=== PATIENT | female | born 1995 | race Caucasian/White ===

== ENCOUNTER 2017-09-06 13:02 | Emergency (ER) | payer BC ==
[2017-09-06] MEDS ORDERED: CLINDAMYCIN 300 MG/D5W RTU 300 MG/50 ML RTUPB IV ONE (13:48)
[2017-09-06] MEDS ORDERED: MORPHINE SULFATE 10 MG/ML INJ IV ONE (14:02)
[2017-09-06] MEDS ORDERED: NORMAL SALINE 1000 ML 1,000 ML IV ONE (14:02)
--- NOTE | 2017-09-06 14:19 | ER Document Report ---
ED General - General Chief Complaint: Foot Pain Stated Complaint: LEG/FOOT CRAMP Time Seen by Provider: 09/06/17 13:42 Mode of Arrival: Ambulatory Information source: Patient Notes: 22-year-old diabetic female with complaints of swelling pain redness of left foot. Patient notes symptoms started this morning. She notes she had nausea yesterday and did not feel good. Patient denies any DVT or PE risk factors TRAVEL OUTSIDE OF THE [place] IN LAST 30 DAYS: No - HPI Onset: This morning Onset/Duration: Sudden Quality of pain: Burning Severity: Mild Pain Level: 1 Associated symptoms: Leg swelling Exacerbated by: Movement Relieved by: Denies Similar symptoms previously: No - Patient has had cracked skin on her left foot for months Recently seen / treated by doctor: No - Related Data Allergies/Adverse Reactions: No Known Allergies Allergy (Verified 09/23/13 13:18) Home Medications: Current Home Medications Metformin HCl 500 mg PO BID 09/06/17 [History] Past Medical History - Social History Smoking Status: Never Smoker Cigarette use (# per day): No Chew tobacco use (# tins/day): No Smoking Education Provided: No Frequency of alcohol use: None Drug Abuse: None Family History: Reviewed & Not Pertinent Endocrine Medical History: Reports: Hx Diabetes Mellitus Type 2 Renal/ Medical History: Denies: Hx Peritoneal Dialysis Surgical Hx: Negative - Immunizations Hx Diphtheria, Pertussis, Tetanus Vaccination: Yes Review of Systems - Review of Systems Notes: REVIEW OF SYSTEMS: CONSTITUTIONAL : Denies fever, chills, or sweats. Denies recent illness. EENT: Denies eye, ear, throat, or mouth pain or symptoms. Denies nasal or sinus congestion or discharge. Denies throat, tongue, or mouth swelling or difficulty swallowing. CARDIOVASCULAR: Denies chest pain. Denies palpitations or racing or irregular heart beat. Admits to left foot swelling RESPIRATORY: Denies cough, cold, or chest congestion. Denies shortness of breath, difficulty breathing, or wheezing. GASTROINTESTINAL: Denies abdominal pain or distention. Denies nausea, vomiting , or diarrhea. Denies blood in vomitus, stools, or per rectum. Denies black, tarry stools. Denies constipation. GENITOURINARY: Denies difficulty urinating, painful urination, burning, frequency, blood in urine, or discharge. FEMALE GENITOURINARY: Denies vaginal bleeding, heavy or abnormal periods, irregular periods. Denies vaginal discharge or odor. MUSCULOSKELETAL: Left foot redness swelling SKIN: Redness HEMATOLOGIC : Denies easy bruising or bleeding. LYMPHATIC: Denies swollen, enlarged glands. NEUROLOGICAL: Denies confusion or altered mental status. Denies passing out or loss of consciousness. Denies dizziness or lightheadedness. Denies headache. Denies weakness or paralysis or loss of use of either side. Denies problems with gait or speech. Denies sensory loss, numbness, or tingling. Denies seizures. PSYCHIATRIC: Denies anxiety or stress. Denies depression, suicidal ideation, or homicidal ideation. ALL OTHER SYSTEMS REVIEWED AND NEGATIVE. PHYSICAL EXAMINATION: GENERAL: Well-appearing, well-nourished and in no acute distress. HEAD: Atraumatic, normocephalic. EYES: Pupils equal round and reactive to light, extraocular movements intact, conjunctiva are normal. ENT: Nares patent, oropharynx clear without exudates. Moist mucous membranes. NECK: Normal range of motion, supple without lymphadenopathy LUNGS: Breath sounds clear to auscultation bilaterally and equal. No wheezes rales or rhonchi. HEART: Regular rate and rhythm without murmurs ABDOMEN: Soft, nontender, nondistended abdomen. No guarding, no rebound. No masses appreciated. Female : deferred Musculoskeletal: left leg edema NEUROLOGICAL: Cranial nerves grossly intact. Normal speech, normal gait. Normal sensory, motor exams PSYCH: Normal mood, normal affect. SKIN: Cellulitis noted from mid left foot to mid tee Dictation was performed using [employer] voice recognition software Physical Exam - Vital signs Vitals: Temp Pulse Resp BP Pulse Ox 99.7 F 125 H 16 136/83 H 96 09/06/17 13:09 09/06/17 13:09 09/06/17 13:09 09/06/17 13:09 09/06/17 13:09 Course - Re-evaluation Re-evalutation: 09/06/17 14:18 Patient has obvious cellulitis which I believe is secondary to the diabetes and cracked skin 09/06/17 17:14 Doppler was negative patient will be treated for the cellulitis and the cracked skin. She will be placed on antibiotics and otherwise well-appearing no distress After performing a Medical Screening Examination, I estimate there is LOW risk for OPEN FRACTURE, COMPARTMENT SYNDROME, TENDON RUPTURE, ACUTE NEUROVASCULAR INJURY, or RETAINED FOREIGN BODY, thus I consider the discharge disposition reasonable. Also, there is no evidence or peritonitis, sepsis, or toxicity. I have reevaluated this patient multiple times and no significant life threatening changes are noted. The patient and I have discussed the diagnosis and risks, and we agree with discharging home with close follow-up with the understanding that symptoms and presentations can change. We also discussed returning to the Emergency Department immediately if new or worsening symptoms occur. We have discussed the symptoms which are most concerning (e.g., changing or worsening pain, fever, numbness, weakness, cool or painful digits) that necessitate immediate return. - Vital Signs Vital signs: Temp Pulse Resp BP Pulse Ox 99.7 F 125 H 16 136/83 H 96 09/06/17 13:09 09/06/17 13:09 09/06/17 13:09 09/06/17 13:09 09/06/17 13:09 - Laboratory Result Diagrams: 09/06/17 14:05 09/06/17 14:05 Laboratory results interpreted by me: 09/06/17 09/06/17 14:05 14:05 WBC 15.3 H RDW 14.6 H Absolute Neutrophils 10.7 H Sodium 135.0 L Chloride 95 L Glucose 375 H - Diagnostic Test Radiology reviewed: Image reviewed, Reports reviewed - no acute abnormality Discharge - Discharge Clinical Impression: Cellulitis Qualifiers: Site of cellulitis: extremity Site of cellulitis of extremity: lower extremity Laterality: left Qualified Code(s): L03.116 - Cellulitis of left lower limb Diabetes Qualifiers: Diabetes mellitus complication status: without complication 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 Oxycodone HCl/Acetaminophen [Percocet 5-325 mg Tablet] 1 - 2 tab PO Q4H PRN #15 tablet PRN Reason:
[2017-09-06 14:22] LABS: ABSOLUTE BASOPHILS # (AUTO) 0.1 10^3/uL (0.0-0.2); ABSOLUTE LYMPHOCYTES (AUTO) 3.7 10^3/uL (0.5-4.7); ABSOLUTE MONOCYTES (AUTO) 0.8 10^3/uL (0.1-1.4); ABSOLUTE NEUT (AUTO) 10.7 10^3/uL (1.7-8.2); BASOPHILS % (AUTO) 0.4 % (0-2); MEAN CORPUSCULAR HEMOGLOBIN 27.3 pg (27.0-33.4); MEAN CORPUSCULAR VOLUME 80 fl (80-97); MONOCYTES % (AUTO) 5.5 % (3-13); RED CELL DISTRIBUTION WIDTH 14.6 % (11.5-14.0); SEGMENTED NEUTROPHILS % (AUTO) 70.1 % (42-78); WHITE BLOOD COUNT 15.3 10^3/uL (4.0-10.5)
[2017-09-06 14:36] LABS: ALANINE AMINOTRANSFERASE 47 U/L (9-52); ALBUMIN 4.2 g/dL (3.5-5.0); ALKALINE PHOSPHATASE 80 U/L (38-126); ANION GAP 15 (5-19); ASPARTATE AMINO TRANSFERASE 27 U/L (14-36); BILIRUBIN,DIRECT 0.4 mg/dL (0.0-0.4); BILIRUBIN,TOTAL 0.9 mg/dL (0.2-1.3); BLOOD UREA NITROGEN 10 mg/dL (7-20); CALCIUM 9.5 mg/dL (8.4-10.2); CARBON DIOXIDE 25 mmol/L (22-30); CHLORIDE 95 mmol/L (98-107); CREATININE RESULT 0.77 mg/dL (0.52-1.25); GLUCOSE 375 mg/dL (75-110); POTASSIUM 4.2 mmol/L (3.6-5.0); TOTAL PROTEIN 7.1 g/dL (6.3-8.2)
[2017-09-06 17:17] VITALS: BP 125/82
--- NOTE | 2017-09-06 18:41 | RADIOLOGY REPORT (SQ) ---
EXAM DESCRIPTION: VENOUS UNILATERAL LOWER COMPLETED DATE/TIME: 09/06/2017 6:10 pm REASON FOR STUDY: left lower extremity COMPARISON: None. TECHNIQUE: Dynamic and static amador scale and color images acquired of the left leg venous system. Se lected spectral images acquired with additional compression and augmentation maneuvers. The contralat eral common femoral vein and saphenofemoral junction were also imaged. Images stored on PACS. LIMITATIONS: None. FINDINGS: COMMON FEMORAL: Normal phasicity, compression and augmentation. No visualized echogenic ma terial on amador scale. No defects on color images. FEMORAL: Normal compression and augmentation. No visualized echogenic material on amador scale. No defe cts on color images. POPLITEAL: Normal compression, augmentation. No visualized echogenic material on amador scale. No defec ts on color images. CALF VESSELS: Normal compression, augmentation. No visualized echogenic material on amador scale. No de fects on color images. GSV and SSV: Normal compression, augmentation. No visualized echogenic material on amador scale. No def ects on color images. ANY DEEP VENOUS INSUFFICIENCY: Not evaluated. ANY EVIDENCE OF POPLITEAL CYST: No. OTHER: No other significant finding. CONTRALATERAL COMMON FEMORAL VEIN AND SAPHENOFEMORAL JUNCTION: Normal phasicity, compression and augmentation. No visualized echogenic material on amador scale. No de fects on color images. IMPRESSION: NO EVIDENCE OF DVT OR SVT IN THE LEFT LEG. TECHNICAL DOCUMENTATION: JOB ID: [id number] [employer]- All Rights Reserved
== END 2017-09-06 17:27 | disposition home or self-care (01) ==
LOC: ER 13:02
DX: L03.116 Cellulitis of left lower limb (principal); E11.9 Type 2 diabetes mellitus without complications; R11.0 Nausea; M79.89 Other specified soft tissue disorders; M79.672 Pain in left foot; Z79.84 Long term (current) use of oral hypoglycemic drugs
CPT/HCPCS: 99284; 96361; 96374; 96375; 36415; 87040; 85025; 80053; 93971; J3490; J2270; J7030

== ENCOUNTER 2017-09-12 15:57 | Inpatient (IN) | payer BC ==
--- NOTE | 2017-09-12 17:02 | ER Document Report ---
ED Medical Screen (RME) - General Mode of Arrival: Ambulatory Information source: Patient TRAVEL OUTSIDE OF THE [place] IN LAST 30 DAYS: No <MATHIEU BHATIA - Last Filed: 09/12/17 18:50> <ABHILASH BECKER - Last Filed: 09/15/17 19:34> - General Chief Complaint: Leg Pain Stated Complaint: KNEE PAIN REVISIT Time Seen by Provider: 09/12/17 16:41 Notes: Patient presents today with complaints of increasing pain and swelling behind her left knee. Patient was seen here a few days ago and put on clindamycin secondary to cellulitis. Patient states the lower part of the leg which was cellulitic initially has cleared up but now she has an area behind her left knee that is red and tender. (MATHIEU BHATIA) - Related Data Allergies/Adverse Reactions: ciprofloxacin [From Cipro] Allergy (Verified 09/12/17 16:00) Sulfa (Sulfonamide Antibiotics) Allergy (Verified 09/12/17 16:00) Home Medications: Current Home Medications No Home Medications 09/13/17 [History] Past Medical History - Social History Chew tobacco use (# tins/day): No Frequency of alcohol use: None Drug Abuse: None Endocrine Medical History: Reports: Hx Diabetes Mellitus Type 2 Surgical Hx: Negative - Immunizations Hx Diphtheria, Pertussis, Tetanus Vaccination: Yes History of Influenza Vaccine for 08/2017 - 01/2018 Season: No <MATHIEU BHATIA - Last Filed: 09/12/17 18:50> Review of Systems - Review of Systems Skin: See HPI, Other - pain, redness behind left knee <MATHIEU BHATIA - Last Filed: 09/12/17 18:50> - Vital signs Vitals: Temp Pulse Resp BP Pulse Ox 100 F 129 H 18 150/77 H 98 09/12/17 16:00 09/12/17 16:00 09/12/17 16:00 09/12/17 16:00 09/12/17 16:00 - Notes Notes: Physical Exam: General: Alert, appears well. HEENT: Normocephalic. Atraumatic. PERRLA. Extraocular movements intact. Oropharynx clear. Neck: Supple. Respiratory: No respiratory distress. Abdominal: Normal Inspection. No distension. Extremities: Moves all four extremities. Neurological: Normal cognition. AAOx4. Normal speech. Psychological: Normal affect. Normal Mood. Skin: Area to left popliteal fossa which is erythematous with questionable area that could represent abscess. Area is very tender with palpation. (MATHIEU BHATIA ) Course - Laboratory Result Diagrams: 09/12/17 17:45 <MATHIEU BHATIA - Last Filed: 09/12/17 18:50> - Laboratory Result Diagrams: 09/12/17 17:45 09/15/17 05:58 - Diagnostic Test Radiology reviewed: Reports reviewed <ABHILASH BECKER - Last Filed: 09/15/17 19:34> - Re-evaluation Re-evalutation: 09/12/17 20:38 Patient presents the emergency department with an increased redness and fullness in her left upper calf. She had recently been seen for cellulitis. She was improving on clindamycin, but now this area, more proximal from the cellulitis, has worsened and become very tender and taut. We obtained an ultrasound which does show a fluid collection consistent with an abscess. We rechecked her white blood cell count, which went from 15,000-19,000. I have called and spoke with Dr. Nguyen, surgery. He has agreed to see the patient the emergency department. I have reviewed the results with the patient and her her . She did receive a dose of IV clindamycin earlier during her evaluation. I expect that Dr. Nguyen will likely perform an incision and drainage. 09/15/17 19:34 Upon review, I see the patient was admitted for observation. (ABHILASH BECKER) - Vital Signs Vital signs: Temp Pulse Resp BP Pulse Ox 98.4 F 94 16 115/70 98 09/15/17 11:50 09/15/17 11:50 09/15/17 11:50 09/15/17 11:50 09/15/17 11:50 - Laboratory Laboratory results interpreted by me: 09/12/17 09/13/17 09/13/17 17:45 08:06 12:32 WBC 19.2 H Hct 35.6 L RDW 14.6 H Plt Count 485 H Seg Neutrophils % 78.6 H Absolute Neutrophils 15.1 H Glucose POC Glucose 253 H 241 H Hemoglobin A1c % LDL Cholesterol Direct HDL Cholesterol 09/13/17 09/13/17 09/14/17 17:41 22:15 06:18 WBC Hct RDW Plt Count Seg Neutrophils % Absolute Neutrophils Glucose POC Glucose 361 H 336 H 280 H Hemoglobin A1c % LDL Cholesterol Direct HDL Cholesterol 09/14/17 09/14/17 09/14/17 11:20 17:44 21:41 WBC Hct RDW Plt Count Seg Neutrophils % Absolute Neutrophils Glucose POC Glucose 356 H 392 H 396 H Hemoglobin A1c % LDL Cholesterol Direct HDL Cholesterol 09/14/17 09/15/17 09/15/17 23:33 05:58 05:58 WBC Hct RDW Plt Count Seg Neutrophils % Absolute Neutrophils Glucose 263 H POC Glucose 287 H Hemoglobin A1c % 10.3 H LDL Cholesterol Direct 102 H HDL Cholesterol 36 L Doctor's Discharge <MATHIEU BHATIA - Last Filed: 09/12/17 18:50> <ABHILASH BECKER - Last Filed: 09/15/17 19:34> - Discharge Clinical Impression: Abscess Cellulitis Qualifiers: Site of cellulitis of extremity: lower extremity Laterality: left Disposition: ADMITTED OBSERVATION Scribe Documentation - Scribe Written by Scribe:: Katherine Aranda, 09/12/2017 1857 acting as scribe for :: Major <MATHIEU BHATIA - Last Filed: 09/12/17 18:50>
[2017-09-12] MEDS ORDERED: OXYCODONE-ACETAMINOPHEN 5-325 MG TABLET PO ONE (17:03)
[2017-09-12] MEDS ORDERED: CLINDAMYCIN 300 MG/D5W RTU 300 MG/50 ML RTUPB IV PRN (17:25)
[2017-09-12 18:04] LABS: ABSOLUTE BASOPHILS # (AUTO) 0.1 10^3/uL (0.0-0.2); ABSOLUTE MONOCYTES (AUTO) 0.9 10^3/uL (0.1-1.4); ABSOLUTE NEUT (AUTO) 15.1 10^3/uL (1.7-8.2); BASOPHILS % (AUTO) 0.7 % (0-2); EOSINOPHILS % (AUTO) 0.2 % (0-6); HEMATOCRIT 35.6 % (36.0-47.0); HEMOGLOBIN 12.3 g/dL (12.0-15.5); HGB HCT DIFFERENCE 1.3; LYMPHOCYTES % (AUTO) 15.8 % (13-45); MEAN CORPUSCULAR HEMOGLOBIN 27.8 pg (27.0-33.4); MEAN CORPUSCULAR HGB CONC 34.5 g/dL (32.0-36.0); MEAN CORPUSCULAR VOLUME 81 fl (80-97); MONOCYTES % (AUTO) 4.7 % (3-13); RED BLOOD COUNT 4.41 10^6/uL (3.72-5.28); RED CELL DISTRIBUTION WIDTH 14.6 % (11.5-14.0); SEGMENTED NEUTROPHILS % (AUTO) 78.6 % (42-78); WHITE BLOOD COUNT 19.2 10^3/uL (4.0-10.5)
--- NOTE | 2017-09-12 19:45 | RADIOLOGY REPORT (SQ) ---
EXAM DESCRIPTION: U/S EXTREMITY NONVASCULAR LTD COMPLETED DATE/TIME: 09/12/2017 7:29 pm REASON FOR STUDY: eval for fluid collection/abscess COMPARISON: None. TECHNIQUE: Dynamic and static grayscale images acquired of the localized site of clinical concern an d recorded on PACS. Additional selected color Doppler and spectral images recorded. SITE OF CONCERN: Left lower extremity LIMITATIONS: None. FINDINGS: SKIN AND SUBCUTANEOUS TISSUES: Diffuse subcutaneous edema. Complex fluid collection popli teal fossa measuring 1.7 x 1.4 cm. DEEP SOFT TISSUES/MUSCLES: No masses. No fluid collections. No edema. VASCULAR: No increased or decreased vascularity. No occlusions. OTHER: No other significant finding. IMPRESSION: DIFFUSE SUBCUTANEOUS EDEMA WITH 1.7 CM COMPLEX FLUID COLLECTION WITHIN THE POPLITEAL FOS SA PRESUMABLY REPRESENTS A BULLARD CYST HOWEVER ABSCESS COULD HAVE THIS APPEARANCE. TECHNICAL DOCUMENTATION: JOB ID: [id number] [employer]- All Rights Reserved
--- NOTE | 2017-09-12 21:33 | ER Document Report ---
ED Extremity Problem, Lower - General Chief Complaint: Leg Pain Stated Complaint: KNEE PAIN REVISIT Time Seen by Provider: 09/12/17 16:41 Mode of Arrival: Ambulatory Information source: Patient TRAVEL OUTSIDE OF THE [place] IN LAST 30 DAYS: No - HPI Patient complains to provider of: Pain, Swelling Location: Knee, Leg Occurred: Other - 3-4 days Where: Home Onset/Duration: Gradual, Persistent, Worse Quality of pain: Achy, Fullness, Pressure, Throbbing Severity: Moderate Pain Level: 4 Recent injury: No Exacerbated by: Movement Relieved by: Nothing Notes: Patient is a 22-year-old female presenting to the emergency room today complaining of 3-4 day history of increased redness, swelling and pain to her left lower extremity, today she developed a fever and is noted to be tachycardic as well, she denies any initial injury, she was seen in this department recently and started on antibiotics for likely cellulitis - Related Data Allergies/Adverse Reactions: ciprofloxacin [From Cipro] Allergy (Verified 09/12/17 16:00) Sulfa (Sulfonamide Antibiotics) Allergy (Verified 09/12/17 16:00) Past Medical History - General Information source: Patient - Social History Smoking Status: Never Smoker Chew tobacco use (# tins/day): No Frequency of alcohol use: None Drug Abuse: None Family History: Reviewed & Not Pertinent Patient has suicidal ideation: No Patient has homicidal ideation: No Endocrine Medical History: Reports: Hx Diabetes Mellitus Type 2 Renal/ Medical History: Denies: Hx Peritoneal Dialysis Surgical Hx: Negative - Immunizations Hx Diphtheria, Pertussis, Tetanus Vaccination: Yes Review of Systems - Review of Systems Constitutional: No symptoms reported EENT: No symptoms reported Cardiovascular: No symptoms reported Respiratory: No symptoms reported Gastrointestinal: No symptoms reported Genitourinary: No symptoms reported Female Genitourinary: No symptoms reported Musculoskeletal: No symptoms reported Skin: See HPI Hematologic/Lymphatic: No symptoms reported Neurological/Psychological: No symptoms reported -: Yes All other systems reviewed and negative Physical Exam - Vital signs Vitals: Temp Pulse Resp BP Pulse Ox 100 F 129 H 18 150/77 H 98 09/12/17 16:00 09/12/17 16:00 09/12/17 16:00 09/12/17 16:00 09/12/17 16:00 Interpretation: Tachycardic, Febrile - General General appearance: Appears well, Alert - HEENT Head: Normocephalic, Atraumatic Eyes: Normal Pupils: PERRL - Respiratory Respiratory status: No respiratory distress Chest status: Nontender Breath sounds: Normal Chest palpation: Normal - Cardiovascular Rhythm: Regular Heart sounds: Normal auscultation Murmur: No - Abdominal Inspection: Normal, Obese Distension: No distension Bowel sounds: Normal Tenderness: Nontender Organomegaly: No organomegaly - Back Back: Normal, Nontender - Extremities General upper extremity: Normal inspection, Nontender, Normal color, Normal ROM , Normal temperature General lower extremity: No: Racheal's sign Notes: Significant erythema with tenderness and swelling starting in the popliteal space of the left leg and extending midway down the left calf, distal sensation and motor is intact with 2+ DP pulses, pain with range of motion testing - Neurological Neuro grossly intact: Yes Cognition: Normal Orientation: AAOx4 [place] Coma Scale Eye Opening: Spontaneous [place] Coma Scale Verbal: Oriented [place] Coma Scale Motor: Obeys Commands [place] Coma Scale Total: 15 Speech: Normal Motor strength normal: LUE, RUE, LLE, RLE Sensory: Normal - Psychological Associated symptoms: Normal affect, Normal mood - Skin Skin Temperature: Warm Skin Moisture: Dry Skin Color: Normal Course - Re-evaluation Re-evalutation: 09/12/17 21:40 Patient symptoms consistent with abscess in the popliteal space, patient was discussed with the on-call surgeon, Dr. Nguyen who agrees to admit for further evaluation and treatment - Vital Signs Vital signs: Temp Pulse Resp BP Pulse Ox 100 F 129 H 18 150/77 H 98 09/12/17 16:00 09/12/17 16:00 09/12/17 16:00 09/12/17 16:00 09/12/17 16:00 - Laboratory Result Diagrams: 09/12/17 17:45 Laboratory results interpreted by me: 09/12/17 17:45 WBC 19.2 H Hct 35.6 L RDW 14.6 H Plt Count 485 H Seg Neutrophils % 78.6 H Absolute Neutrophils 15.1 H - Diagnostic Test Radiology reviewed: Image reviewed, Reports reviewed Discharge - Discharge Clinical Impression: Abscess Cellulitis Qualifiers: Site of cellulitis of extremity: lower extremity Laterality: left Disposition: ADMITTED OBSERVATION Admitting Provider: Surgicalist Unit Admitted: Medical Floor
--- NOTE | 2017-09-12 22:08 | HISTORY AND PHYSICAL E ---
History and Physical NAME: DANAY VEGA : 1995 AGE: 22Y ADMITTED: 09/12/2017 ROOM: CHIEF COMPLAINT: Left leg pains. HISTORY OF PRESENT ILLNESS: This is a 22-year-old female with noted pains along the left lower leg with swelling. She first noted a fever and chills about 8 days ago. The next day the patient went to the emergency room and noted to have swelling of the left leg with redness and given p.o. clindamycin. However, the pains worsened, and the swelling got more painful and tender, and subsequently went to the emergency room today. PAST HISTORY: Unremarkable. She is known to have type 2 diabetes since age 14 in high school and has been taking metformin since. Otherwise unremarkable. FAMILY HISTORY: Strong for diabetes. ALLERGIES: 1. Sulfa 2. Cipro. SOCIAL HISTORY: Denies smoking, drinking, or recreational drug use. REVIEW OF SYSTEMS: Denies headaches, cough, chest pains, shortness of breath, diarrhea, constipation, or dysuria. Extremities: Complains of pains with redness and swelling on the left [id number] area on the medial side for the past 7-8 days. She has pains, especially in ambulation. Today she is noted to have a fever. PHYSICAL EXAM: GENERAL: Well-developed, slightly overweight, 22-year-old, female, alert and oriented, complaining of pains, left lower leg. HEENT: Neck is supple. No thyromegaly. LUNGS: Clear. HEART: Regular. Normal sinus rhythm. ABDOMEN: Soft, nontender. EXTREMITIES: There is a large swelling, erythematous, very tender area on the left below the knee on the medial side. There is also swelling of the whole middle knee area down to the ankle. The apparently had an ultrasound of the left leg in the past few days and no apparent DVT. IMPRESSION: Abscess of the left lower leg. PLANS: Patient to start on IV antibiotics and n.p.o. from midnight. Possible incision and drainage of abscess in the morning. DICTATING PHYSICIAN: FACUNDO NAVA M.D. [id number] PHY#: [id number] ID: [id number] JOB#: [id number] ACCT: [id number] cc:Eldon URIAS MD
[2017-09-13] MEDS ORDERED: ACETAMINOPHEN 325 MG TABLET ONE (00:25)
[2017-09-13] MEDS ORDERED: CLINDAMYCIN 600 MG/D5W RTU 600 MG/50 ML RTUPB IV ONE (01:12)
[2017-09-13] MEDS ORDERED: INFLUENZA ADLT QUAD (36MOS+) 2017-18 VAC 0.5 ML SYR IM PRN (03:24)
[2017-09-13] MEDS ORDERED: CLINDAMYCIN 600 MG/D5W RTU 600 MG/50 ML RTUPB IV SCH (06:00)
[2017-09-13] MEDS: HYDROMORPHONE HCL INJ/PF 2 MG/ML AMPULE IV PRN (07:03)
[2017-09-13] MEDS: NORMAL SALINE 1000 ML 1,000 ML IV PRN (07:29)
[2017-09-13] MEDS ORDERED: FENTANYL CITRATE INJ/PF 100 MCG/2 ML AMPUL ONE ×2 (08:41→08:42)
[2017-09-13] MEDS ORDERED: KETAMINE HCL INJ 500 MG/10 ML VIAL ONE (08:41)
[2017-09-13] MEDS ORDERED: MIDAZOLAM 2 MG/2 ML INJ ONE (08:42)
[2017-09-13] MEDS ORDERED: PROPOFOL INJ 200 MG/20 ML VIAL IV ONE (08:43)
[2017-09-13] MEDS ORDERED: ACETAMINOPHEN 100 ML IV ONE (08:43)
[2017-09-13] MEDS ORDERED: FENTANYL CITRATE INJ/PF 100 MCG/2 ML AMPUL IV PRN ×3 (09:55)
[2017-09-13] MEDS ORDERED: MORPHINE SULFATE 10 MG/ML INJ IV PRN (09:55)
[2017-09-13] MEDS ORDERED: MEPERIDINE HCL/PF INJ 25 MG/1 ML DISP.SYRIN IV PRN (09:55)
[2017-09-13] MEDS ORDERED: DIPHENHYDRAMINE HCL 50 MG/ML VIAL IV PRN (09:55)
[2017-09-13] MEDS ORDERED: PROMETHAZINE HCL INJ 25 MG/1 ML VIAL IV PRN (09:55)
--- NOTE | 2017-09-13 11:23 | OPERATIVE REPORT E ---
Operative Report NAME: DANAY VEGA : 1995 AGE: 22Y DATE OF SURGERY: ROOM: 209 PREOPERATIVE DIAGNOSES: 1. DIABETES. 2. LEFT CALF AREA ABSCESS INVOLVING THE LEFT KNEEFOLD SOFT TISSUES IN THE POPLITEAL FOSSA AREA. POSTOPERATIVE DIAGNOSIS: NECROTIC SOFT TISSUE INFECTION INVOLVING ABOUT 4-5 CM AREA FOR DEEP SOFT TISSUES INCLUDING DEEP SUBCUTANEOUS TISSUES, NECROTIC TISSUE WITH ABSCESS. OPERATION: Incisional drainage of an abscess along with the debridement of all the necrotic tissue up to the fascial level of the left popliteal area. SURGEON: DANIEL CORONEL M.D. ANESTHESIA: General. BLOOD LOSS: None. SPECIMENS: Specimen for culture and sensitivity. HISTORY AND INDICATIONS: A diabetic young female patient admitted with a cellulitis and found to have an abscess in the popliteal fossa that needed to be drained and debrided. Explained to the patient and the patient's family about indications for the operation, risks, benefits and complications including, but not limited to, infection, bleeding, pain, recurrence of abscess and need of further reoperation, possible loss of leg, and also possible neurovascular compromise and debility were all explained. The patient was taken to the operating room after informed consent. PROCEDURE: After general anesthesia, in supine position, the left knee area cleaned and draped as a sterile field. On the popliteal fossa side and the medial aspect, about a 3 cm elliptical incision was made. All the abscess was drained out. Surrounding adipose necrotic tissue up to the fascial level was debrided carefully and then the hemostasis was secured and then the wound was irrigated. Dressings were applied. The patient was recovered without any problems and taken to the recovery room in stable condition. DICTATING PHYSICIAN: DANIEL CORONEL M.D. [id number] PHY#: [id number] ID: [id number] JOB#: [id number] ACCT: [id number] cc:DANIEL CORONEL M.D. > MTDD
--- NOTE | 2017-09-13 12:07 | OPERATIVE REPORT E ---
Operative Report NAME: DANAY VEGA : 1995 AGE: 22Y DATE OF SURGERY: ROOM: 209 PREOPERATIVE DIAGNOSES: 1. A 22-YEAR-OLD FEMALE PATIENT WITH DIABETES MELLITUS, LEFT SIDE UPPER LEG CELLULITIS WITH ABSCESS FORMATION, UNCERTAIN ETIOLOGY, POSSIBLE SPIDER BITE, WITH A NECROTIC SOFT TISSUE INFECTION INVOLVING THE LEFT UPPER CALF AND THE POPLITEAL AREA. 2. INCISION AND DRAINAGE WITH DEBRIDEMENT EMERGNTLY. POSTOPERATIVE DIAGNOSES: 1. A 22-YEAR-OLD FEMALE PATIENT WITH DIABETES MELLITUS, LEFT SIDE UPPER LEG CELLULITIS WITH ABSCESS FORMATION, UNCERTAIN ETIOLOGY, POSSIBLE SPIDER BITE, WITH A NECROTIC SOFT TISSUE INFECTION INVOLVING THE LEFT UPPER CALF AND THE POPLITEAL AREA. 2. INCISION AND DRAINAGE WITH DEBRIDEMENT EMERGENTLY. 3. BASICALLY, A NECROTIC SOFT TISSUE INFECTION WITH ABSCESS FORMATION, ABOUT 4-5 CM SIZE, IN THE LEFT POPLITEAL AREA INVOLVING UPPER PART OF THE LEFT POSTERIOR ASPECT OF THE LEG WITH A NECROTIC SOFT TISSUE INFECTION. OPERATION: Incision and drainage of the abscess along with the debridement of the soft tissue necrosis of the left upper calf and the popliteal area. SURGEON: DANIEL CORONEL M.D. ANESTHESIA: General. BLOOD LOSS: Less than 10 mL. SPECIMENS: Pus for culture and sensitivity. HISTORY AND INDICATION: As described. PROCEDURE: After general anesthesia, in supine position, the left lower extremity cleaned and draped as a sterile field. Initially, the left lower extremity cleaned and draped as a sterile field. After that, the area confirmed again and then about a 3 cm elliptical incision was made in the necrotic-looking patch on the skin. Underlying thick purulent fluid/pus was drained out, sent for cultures also. Surrounding necrotic soft tissue infection, mostly adipose tissue, up to the fascial level was debrided up to the healthy fascial margin. Then, the wound was copiously again suctioned out. Complete thorough hemostasis secured. The wound was lightly packed and dressings were applied. The patient was stable throughout the operation, recovered without any problems. She was taken to the recovery room in stable condition. The patient and the patient's family explained about the indications for the operation, risks, benefits and complications including, but not limited to, recurrent infections, bleeding, pain, the need for further debridements of the wound if keeps getting necrotic, and the possibility of leg loss, and need for good diabetic control, good for personal care, need followup with a primary care on a consistent basis to keep the diabetes under control to maintain good health overall for good outcome. Otherwise, she has a high risk for leg loss and amputations. All this thoroughly explained to the patient and the patient's family prior to the operation and after the operation also, also prior to obtaining informed consent. DICTATING PHYSICIAN: DANIEL CORONEL M.D. [id number] PHY#: [id number] ID: [id number] JOB#: [id number] ACCT: [id number] cc:DANIEL CORONEL M.D. >
[2017-09-13] MEDS: PIPERACILLIN SODIUM/TAZOBACTAM 3.375 GM in NORMAL SALINE 100 ML IV SCH ×2 (12:30→18:09)
[2017-09-13] MEDS ORDERED: GLUCAGON,HUMAN RECOMB 1 MG INJ IM PRN (16:49)
[2017-09-13] MEDS ORDERED: DEXTROSE 50%-WATER SYRINGE 25 GM/50 ML DOSE IV PRN (16:49)
[2017-09-13] MEDS ORDERED: DEXTROSE 40% GEL 15 GM TUBE X 2 PO PRN (16:49)
[2017-09-13] MEDS ORDERED: DEXTROSE 40% GEL 15 GM TUBE PO PRN (16:49)
[2017-09-13] MEDS ORDERED: DEXTROSE 50%-WATER SYRINGE 12.5 GM/25 ML DOSE IV PRN (16:49)
[2017-09-13] MEDS: INSULIN LISPRO 100 UNIT/ML 3 ML VIAL SUBCUT PRN ×2 (18:09→22:51)
[2017-09-14] MEDS: PIPERACILLIN SODIUM/TAZOBACTAM 3.375 GM in NORMAL SALINE 100 ML IV SCH ×5 (00:16→23:22)
[2017-09-14] MEDS: NORMAL SALINE 1000 ML 1,000 ML IV PRN ×2 (00:35→06:30)
[2017-09-14] MEDS: INSULIN LISPRO 100 UNIT/ML 3 ML VIAL SUBCUT PRN ×4 (08:02→21:54)
[2017-09-14] MEDS: HYDROCODONE/ACETAMINOPHEN 5-325 MG TABLET PO PRN ×2 (11:33→20:12)
[2017-09-14] MEDS ORDERED: SUCCINYLCHOLINE CHLORIDE INJ 200 MG/10 ML VIAL ONE (14:28)
[2017-09-14] MEDS ORDERED: ONDANSETRON HCL INJ/PF 4 MG/2 ML SDV ONE (14:28)
[2017-09-14] MEDS ORDERED: DEXAMETHASONE SOD PHOSPHATE INJ 4 MG/1 ML VIAL ONE (14:28)
--- NOTE | 2017-09-14 15:18 | PDOC PROGRESS REPORT ---
Subjective Progress Note for:: 09/14/17 Subjective:: pain better Physical Exam Vital Signs: Temp Pulse Resp BP Pulse Ox 98.8 F 99 18 136/77 H 98 09/14/17 11:36 09/14/17 11:36 09/14/17 11:36 09/14/17 11:36 09/14/17 11:36 Intake & Output 09/13/17 09/14/17 09/15/17 06:59 06:59 06:59 Intake Total 4200 Output Total 505 Balance 3695 Extremities exam: PRESENT: other - left leg, popleteal area - still has some cellulitis changes and edema , wound irrigated , dressings changed Results Impressions: Extremity Ultrasound 09/12/17 17:02 IMPRESSION: DIFFUSE SUBCUTANEOUS EDEMA WITH 1.7 CM COMPLEX FLUID COLLECTION WITHIN THE POPLITEAL FOSSA PRESUMABLY REPRESENTS A BULLARD CYST HOWEVER ABSCESS COULD HAVE THIS APPEARANCE. Assessment & Plan - Plan Summary Plan Summary: Left leg, popleteal area - soft tissue necrosis with abscess and cellulitis needs IV antibiotics Wound care Hospitalist consult for Diabetes management Lovenox for DVT prophylaxis
[2017-09-14] MEDS ORDERED: HYDROMORPHONE HCL INJ/PF 2 MG/ML AMPULE IV ONE (16:00)
--- NOTE | 2017-09-14 16:34 | PDOC CONSULTATION ---
Consultation Consult Date: 09/14/17 Attending physician:: DANIEL CORONEL Consult reason:: Diabetes management History of Present Illness Admission Date/PCP: 09/12/17 21:43 Patient complains of: Elevated blood glucose History of Present Illness: DANAY VEGA is a 22 year old female with a past medical history of type 2 diabetes mellitus, pancreatitis, and obesity who is seen resting in bed comfortably with her family present. She is seen at the request of Surgery for diabetes management. She is Post-op day #1 s/p incision and drainage with debridement of necrotic tissue of Left leg popleteal abscess currently on Pip/Tazo for cellulitis. Pt reports that she has known diabetes, diagnosed at age 14. She was on metformin until approximately 2 years ago when she developed pancreatitis. At that time, she was transitioned to insulin which she continued until her , when she was transitioned back to metformin as well as glimeperide. She continued these medications until shortly after delivery 7 months ago. She states that she stopped taking her medications at that time, as she "was too busy taking care of my new baby." She reports that she has not checked her bgl in over two months. She reports previously being on a medication "to protect my kidneys [lisinopril] " but can't recall why she is no longer taking this medication. She denies a history of hypertension. Other than left lower leg discomfort related to the cellulitis, she states that she feels fine and has no other questions or concerns. Past Medical History Cardiac Medical History: Reports: None Pulmonary Medical History: Reports: None EENT Medical History: Reports: None Neurological Medical History: Reports: None Endocrine Medical History: Reports: Diabetes Mellitus Type 2 Renal/ Medical History: Reports: None Malignancy Medical History: Reports: None GI Medical History: Reports: Other - Pancreatitis Musculoskeltal Medical History: Reports: None Psychiatric Medical History: Reports: Depression Traumatic Medical History: Reports: None Hematology: Reports: None Infectious Medical History: Reports: None Past Surgical History Past Surgical History: Reports: None Social History Information Source: Patient, Parent Lives with: Parents Smoking Status: Never Smoker Frequency of Alcohol Use: Occasional Hx Recreational Drug Use: No Hx Prescription Drug Abuse: No - Advance Directive Resuscitation Status: Full Code Family History Family History: DM, Hypertension Parental Family History Reviewed: Yes - Mother: DM2 Children Family History Reviewed: Yes Sibling(s) Family History Reviewed.: Yes Medication/Allergy Home Medications: No Home Medications 09/13/17 Allergies/Adverse Reactions: ciprofloxacin [From Cipro] Allergy (Verified 09/12/17 16:00) Sulfa (Sulfonamide Antibiotics) Allergy (Verified 09/12/17 16:00) Review of Systems Constitutional: ABSENT: chills, fever(s), headache(s), weight gain, weight loss Eyes: ABSENT: visual disturbances Cardiovascular: PRESENT: edema - BLE. ABSENT: chest pain, dyspnea on exertion, orthropnea, palpitations Respiratory: ABSENT: cough, hemoptysis Gastrointestinal: ABSENT: abdominal pain, constipation, diarrhea, hematemesis, hematochezia, nausea, vomiting Musculoskeletal: ABSENT: joint swelling Integumentary: PRESENT: as per HPI, erythema, wounds Neurological: ABSENT: abnormal gait, abnormal speech, confusion, dizziness, focal weakness, syncope Psychiatric: PRESENT: depression. ABSENT: anxiety, homidical ideation, suicidal ideation Endocrine: ABSENT: cold intolerance, heat intolerance, polydipsia, polyuria Hematologic/Lymphatic: ABSENT: easy bleeding, easy bruising Physical Exam Vital Signs: Temp Pulse Resp BP Pulse Ox 98.8 F 99 18 136/77 H 98 09/14/17 11:36 09/14/17 11:36 09/14/17 11:36 09/14/17 11:36 09/14/17 11:36 Intake & Output 09/13/17 09/14/17 09/15/17 06:59 06:59 06:59 Intake Total 4200 Output Total 505 Balance 3695 General appearance: PRESENT: no acute distress, obese, well-developed, well- nourished Head exam: PRESENT: atraumatic, normocephalic Eye exam: PRESENT: conjunctiva pink, EOMI, PERRLA. ABSENT: scleral icterus Ear exam: PRESENT: normal external ear exam Mouth exam: PRESENT: moist, tongue midline Neck exam: ABSENT: carotid bruit, JVD, lymphadenopathy, thyromegaly Respiratory exam: PRESENT: clear to auscultation minerva, symmetrical, unlabored. ABSENT: rales, rhonchi, wheezes Cardiovascular exam: PRESENT: RRR. ABSENT: diastolic murmur, rubs, systolic murmur Pulses: PRESENT: normal dorsalis pedis pul Vascular exam: PRESENT: normal capillary refill GI/Abdominal exam: PRESENT: normal bowel sounds, soft. ABSENT: distended, guarding, mass, organolmegaly, rebound, tenderness Rectal exam: PRESENT: deferred Extremities exam: PRESENT: full ROM. ABSENT: calf tenderness, clubbing, pedal edema Neurological exam: PRESENT: alert, awake, oriented to person, oriented to place , oriented to time, oriented to situation, CN II-XII grossly intact. ABSENT: motor sensory deficit Psychiatric exam: PRESENT: agitated, appropriate affect. ABSENT: homicidal ideation, suicidal ideation Skin exam: PRESENT: dry, warm. ABSENT: cyanosis, intact - s/p I&D left popeteal per Surgery; wound not examined. Chronic fungal skin changes to toes of left foot, rash Results Impressions: Extremity Ultrasound 09/12/17 17:02 IMPRESSION: DIFFUSE SUBCUTANEOUS EDEMA WITH 1.7 CM COMPLEX FLUID COLLECTION WITHIN THE POPLITEAL FOSSA PRESUMABLY REPRESENTS A BULLARD CYST HOWEVER ABSCESS COULD HAVE THIS APPEARANCE. Assessment & Plan - Diagnosis (1) Diabetes mellitus type 2 in obese Is this a current diagnosis for this admission?: Yes Plan: Hyperglycemia in patient with long standing uncontrolled type 2 diabetes obese patient. Pt is admittedly noncompliant with medications, monitoring, and diet. 1- Accuchecks with SSI achs 2- Begin Lantus qHS 3- Consistent carb diet; encourage compliance with dietary recommendations 4- Will ask Hotel Security Officer to meet with patient 5- Will ask RD to meet with patient 6- Will check A1c to guide discharge medication recommendations; po medications vs intensive therapy w/ continued insulin (2) Hypertension Qualifiers: Hypertension type: unspecified Qualified Code(s): I10 - Essential (primary ) hypertension Is this a current diagnosis for this admission?: Yes Plan: Hypertension in patient with type 2 diabetes mellitus; previously treated with lisinopril. Recommend resumption of therapy; especially considering renal protective properties. (3) Tinea pedis Is this a current diagnosis for this admission?: Yes - Time Time Spent: 30 to 50 Minutes Medications reviewed and adjusted accordingly: Yes Anticipated discharge: Home
[2017-09-14] MEDS: INSULIN GLARGINE,HUM.REC.ANLOG 300 UNIT/3 ML INSULN.PEN SUBCUT SCH (20:14)
[2017-09-15] MEDS ORDERED: DIPHENHYDRAMINE HCL 25 MG CAPSULE PO PRN ×2 (01:10→09:59)
[2017-09-15] MEDS: PIPERACILLIN SODIUM/TAZOBACTAM 3.375 GM in NORMAL SALINE 100 ML IV SCH (05:05)
[2017-09-15] MEDS: HYDROMORPHONE HCL INJ/PF 2 MG/ML AMPULE IV PRN ×3 (05:53→22:54)
[2017-09-15 07:22] LABS: ANION GAP 13 (5-19); BLOOD UREA NITROGEN 11 mg/dL (7-20); CALCIUM 9.3 mg/dL (8.4-10.2); CARBON DIOXIDE 24 mmol/L (22-30); CHLORIDE 105 mmol/L (98-107); CHOLESTEROL 159.94 mg/dL (0-200); CREATININE RESULT 0.64 mg/dL (0.52-1.25); Direct HDL 36 mg/dL (>40); GLUCOSE 263 mg/dL (75-110); POTASSIUM 4.1 mmol/L (3.6-5.0); SODIUM 141.9 mmol/L (137-145); TRIGLYCERIDES 128 mg/dL (<150)
[2017-09-15 07:32] LABS: DIRECT LDL 102 mg/dL (<100)
[2017-09-15] MEDS: INSULIN LISPRO 100 UNIT/ML 3 ML VIAL SUBCUT PRN ×4 (08:41→22:18)
--- NOTE | 2017-09-15 09:41 | Physician Advisory Note ---
Physician Advisor ProgressNote .: [facility] I have reviewed the medical record for this patient. Physician Advisor Statement: Please consider documenting, if you agree: 1. "obesity w/BMI 42" 2. status change (see below) Status: Diabetic pt w/LLE cellulitis in a skin fold (from obesity) that failed outpt mgmt (via ED with po clindamycin), w/worsening to the point of fever, tachycardia, high leukocytosis, & definite abscess, having worsening sx over several days. Required operative I&D, ongoing IV abx w/close monitoring of wound & DM control. Appropriate for Inpatient status. CK
[2017-09-15] MEDS ORDERED: METHYLPREDNISOLONE INJ 40 MG/1 ML SDV IV ONE (10:00)
[2017-09-15] MEDS: LISINOPRIL 5 MG TABLET PO SCH (10:28)
--- NOTE | 2017-09-15 10:28 | PDOC PROGRESS REPORT ---
Subjective Progress Note for:: 09/15/17 Subjective:: Patient reports breaking out in a rash involving her left chest breast back and left leg. She did undergo dressing changes morning. She just finished her a.m. Zosyn dose. Physical Exam Vital Signs: Temp Pulse Resp BP Pulse Ox 98.0 F 82 16 107/55 L 99 09/15/17 08:18 09/15/17 08:18 09/15/17 08:18 09/15/17 08:18 09/15/17 08:18 Intake & Output 09/14/17 09/15/17 09/16/17 06:59 06:59 06:59 Intake Total 4200 1010 Output Total 505 Balance 3695 1010 General appearance: PRESENT: mild distress Additional comments: Extensive maculopapular rash involving the chest breast above and below the knee , and back. Dressing left lower extremity intact. Results Laboratory Results: 09/15/17 05:58 09/15/17 05:58 Sodium 141.9 Potassium 4.1 Chloride 105 Carbon Dioxide 24 Anion Gap 13 BUN 11 Creatinine 0.64 Est GFR ( Amer) > 60 Est GFR (Non-Af Amer) > 60 Glucose 263 H Calcium 9.3 Triglycerides 128 Cholesterol 159.94 LDL Cholesterol Direct 102 H VLDL Cholesterol 26.0 HDL Cholesterol 36 L Impressions: Extremity Ultrasound 09/12/17 17:02 IMPRESSION: DIFFUSE SUBCUTANEOUS EDEMA WITH 1.7 CM COMPLEX FLUID COLLECTION WITHIN THE POPLITEAL FOSSA PRESUMABLY REPRESENTS A BULLARD CYST HOWEVER ABSCESS COULD HAVE THIS APPEARANCE. Assessment & Plan - Diagnosis (1) Allergic reaction caused by a drug Qualifiers: Encounter type: initial encounter Qualified Code(s): T78.40XA - Allergy, unspecified, initial encounter Is this a current diagnosis for this admission?: Yes Plan: Apparently patient is having an acute histamine mediated maculopapular rash likely reaction to medication, with high suspicion for the penicillin in Zosyn which he just received. Patient reports allergies to ciprofloxacin and sulfa in the past. Plan: 1. Discontinue Zosyn 2. Start Benadryl 50 mg p.o. every 8 hours 3. Give Solu-Medrol 25 mg IV now well (2) Abscess Is this a current diagnosis for this admission?: Yes Plan: Patient growing group B beta-hemolytic strep. In light of patient's apparent allergic reaction to ampicillin, will suspend antibiotic therapy for the moment , recheck wound, and confer with pharmacy about ongoing antimicrobial therapy. (3) Diabetes mellitus type 2 in obese Is this a current diagnosis for this admission?: Yes
[2017-09-15] MEDS: ENOXAPARIN SODIUM INJ 40 MG/0.4 ML DISP.SYRIN SUBCUT SCH (10:29)
[2017-09-15] MEDS: DOCUSATE SODIUM 100 MG CAPSULE PO SCH ×2 (10:29→17:08)
[2017-09-15] MEDS ORDERED: INFLUENZA ADLT QUAD (36MOS+) 2017-18 VAC 0.5 ML SYR IM PRN (11:00)
--- NOTE | 2017-09-15 12:29 | PDOC PROGRESS REPORT ---
Subjective Progress Note for:: 09/15/17 Subjective:: Pt seen on morning rounds resting comfortably. She reports that she developed a generalized rash with pruritus this AM shortly after receiving her morning Zosyn dose. Attending physician has been made aware. She reports that symptoms have improved with benadryl. Otherwise, she is doing well and has no questions or concerns. She denies fever, chills, body aches, headache, dizziness, chest pain, palpitations, abd pain, nausea and vomiting. ROS as above and otherwise negative. Physical Exam Vital Signs: Temp Pulse Resp BP Pulse Ox 98.0 F 82 16 107/55 L 99 09/15/17 08:18 09/15/17 08:18 09/15/17 08:18 09/15/17 08:18 09/15/17 08:18 Intake & Output 09/14/17 09/15/17 09/16/17 06:59 06:59 06:59 Intake Total 4200 1010 Output Total 505 Balance 3695 1010 General appearance: PRESENT: no acute distress, obese, well-developed, well- nourished Head exam: PRESENT: atraumatic, normocephalic Eye exam: PRESENT: conjunctiva pink, EOMI, PERRLA. ABSENT: scleral icterus Ear exam: PRESENT: normal external ear exam Mouth exam: PRESENT: moist, tongue midline Neck exam: ABSENT: carotid bruit, JVD, lymphadenopathy, thyromegaly Respiratory exam: PRESENT: clear to auscultation minerva. ABSENT: rales, rhonchi, wheezes Cardiovascular exam: PRESENT: RRR. ABSENT: diastolic murmur, rubs, systolic murmur Pulses: PRESENT: normal dorsalis pedis pul Vascular exam: PRESENT: normal capillary refill GI/Abdominal exam: PRESENT: normal bowel sounds, soft. ABSENT: distended, guarding, mass, organolmegaly, rebound, tenderness Rectal exam: PRESENT: deferred Extremities exam: PRESENT: full ROM, tenderness - LLE. ABSENT: calf tenderness , clubbing, pedal edema Neurological exam: PRESENT: alert, awake, oriented to person, oriented to place , oriented to time, oriented to situation, CN II-XII grossly intact. ABSENT: motor sensory deficit Psychiatric exam: PRESENT: appropriate affect, normal mood. ABSENT: homicidal ideation, suicidal ideation Skin exam: PRESENT: dry, erythema - LLE, warm. ABSENT: cyanosis, intact - Wound s/p I&D per surgery; wound not visualized, rash Results Laboratory Results: 09/15/17 05:58 09/15/17 05:58 Sodium 141.9 Potassium 4.1 Chloride 105 Carbon Dioxide 24 Anion Gap 13 BUN 11 Creatinine 0.64 Est GFR ( Amer) > 60 Est GFR (Non-Af Amer) > 60 Glucose 263 H Calcium 9.3 Triglycerides 128 Cholesterol 159.94 LDL Cholesterol Direct 102 H VLDL Cholesterol 26.0 HDL Cholesterol 36 L Impressions: Extremity Ultrasound 09/12/17 17:02 IMPRESSION: DIFFUSE SUBCUTANEOUS EDEMA WITH 1.7 CM COMPLEX FLUID COLLECTION WITHIN THE POPLITEAL FOSSA PRESUMABLY REPRESENTS A BULLARD CYST HOWEVER ABSCESS COULD HAVE THIS APPEARANCE. Assessment & Plan - Diagnosis (1) Diabetes mellitus type 2 in obese Is this a current diagnosis for this admission?: Yes Plan: Hyperglycemia in patient with long standing uncontrolled type 2 diabetes obese patient. Pt is admittedly noncompliant with medications, monitoring, and diet. A1c 10.3. Lipid panel reviewed; pt declines to initiate statin at this time. 1- Accuchecks with SSI achs 2- Begin Lantus qHS 3- Consistent carb diet; encourage compliance with dietary recommendations 4- Will ask Trim Setter to meet with patient 5- Will ask RD to meet with patient 6- Will require insulin therapy at d/c (2) Hypertension Qualifiers: Hypertension type: unspecified Qualified Code(s): I10 - Essential (primary ) hypertension Is this a current diagnosis for this admission?: Yes Plan: Hypertension in patient with type 2 diabetes mellitus; previously treated with lisinopril. Recommend resumption of therapy; especially considering renal protective properties. 1- Lisinopril (3) Tinea pedis Qualifiers: Laterality: bilateral Qualified Code(s): B35.3 - Tinea pedis Is this a current diagnosis for this admission?: Yes Plan: Recommend dermatology or podiatry outpatient follow up. Will trial nystatin ointment for presumed chronic fungal infection. - Time Time Spent with patient: 15-24 minutes Medications reviewed and adjusted accordingly: Yes Anticipated discharge: Home
[2017-09-15] MEDS ORDERED: CLINDAMYCIN 600 MG/D5W RTU 50 ML IV SCH (14:00)
[2017-09-15] MEDS: VANCOMYCIN HCL 1,500 MG in DEXTROSE 5%-WATER 250 ML IV SCH (15:17)
[2017-09-15] MEDS: NYSTATIN CREAM 15 GM TP SCH (17:09)
[2017-09-15] MEDS: HYDROCODONE/ACETAMINOPHEN 5-325 MG TABLET PO PRN (19:57)
[2017-09-15] MEDS: INSULIN GLARGINE,HUM.REC.ANLOG 300 UNIT/3 ML INSULN.PEN SUBCUT SCH (20:01)
[2017-09-15] MEDS: DIPHENHYDRAMINE HCL 50 MG CAPSULE PO PRN (22:18)
[2017-09-16] MEDS: VANCOMYCIN HCL 1,500 MG in DEXTROSE 5%-WATER 250 ML IV SCH ×2 (02:48→15:05)
[2017-09-16] MEDS: HYDROMORPHONE HCL INJ/PF 2 MG/ML AMPULE IV PRN (09:05)
--- NOTE | 2017-09-16 10:38 | PROGRESS NOTE E ---
Progress Note NAME: DANAY VEGA : 1995 AGE: 22Y DATE: 09/16/2017 ROOM: 209 SUBJECTIVE: This is the second postop day post I and D of abscess of the left leg. The wound was checked and noted to have good granulation tissue. She still had some firm area on the lower aspect of the wound but no evidence of pus and this was squeezed. A small area of necrotic tissue in the mid part of the wound but this looks to be very adherent for the time being. At any rate, a wet-to-dry dressing was then applied. She still has some rash along the leg and throughout her chest but this rash is not any worse compared to yesterday. She was given a dose of Solu-Medrol and Benadryl. Her blood sugar is elevated likely due to a combination of the infection and the Solu-Medrol. ASSESSMENT AND PLAN: Will continue to monitor CBC. Will continue with wet-to-dry dressings twice a day and the wound will be rechecked in the a.m. She will probably be here for 48 to 72 hours. DICTATING PHYSICIAN: FACUNDO NAVA M.D. [id number] PHY#: [id number] ID: [id number] JOB#: [id number] ACCT: [id number] cc: >
[2017-09-16] MEDS: ENOXAPARIN SODIUM INJ 40 MG/0.4 ML DISP.SYRIN SUBCUT SCH (10:57)
[2017-09-16] MEDS: LISINOPRIL 5 MG TABLET PO SCH (10:58)
[2017-09-16] MEDS: INSULIN LISPRO 100 UNIT/ML 3 ML VIAL SUBCUT PRN ×4 (10:58→22:26)
[2017-09-16] MEDS: NYSTATIN CREAM 15 GM TP SCH ×2 (10:58→14:30)
[2017-09-16] MEDS: DIPHENHYDRAMINE HCL 50 MG CAPSULE PO PRN ×2 (10:58→22:26)
[2017-09-16] MEDS: DOCUSATE SODIUM 100 MG CAPSULE PO SCH ×2 (11:27→18:35)
[2017-09-16] MEDS: HYDROCODONE/ACETAMINOPHEN 5-325 MG TABLET PO PRN ×2 (14:14→20:33)
[2017-09-16] MEDS ORDERED: INSULIN GLARGINE,HUM.REC.ANLOG 300 UNIT/3 ML INSULN.PEN SUBCUT SCH (17:51)
--- NOTE | 2017-09-16 18:19 | PDOC PROGRESS REPORT ---
Subjective Progress Note for:: 09/16/17 Subjective:: Patient currently has few complaints. She is getting her IV changed at the bedside. She says that her rash feels better and less itchy. Her blood sugars have been mid 300s. Of note she is receiving vancomycin which is commonly mixed in dextrose. She required a total of 26 units of additional regular insulin throughout the day yesterday. Physical Exam Vital Signs: Temp Pulse Resp BP Pulse Ox 97.7 F 98 16 115/67 100 09/16/17 14:20 09/16/17 14:20 09/16/17 14:20 09/16/17 14:20 09/16/17 14:20 Intake & Output 09/15/17 09/16/17 09/17/17 06:59 06:59 06:59 Intake Total 250 Balance 250 GENERAL: Well-developed, well-nourished obese , appearing white female resting in bed currently in no acute distress HEART: Regular rate and rhythm. No murmurs, rubs or gallops. LUNGS: Clear to auscultation bilaterally with equal rise and fall of the chest. ABDOMEN: Soft, nontender, nondistended with normoactive bowel sounds EXTREMETIES: No clubbing, cyanosis or edema. 2+ peripheral pulses bilaterally. NEURO: Awake, alert and oriented 3. Cranial nerves II through XII are grossly intact. Skin: The patient has a maculopapular rash on her thighs which seems to be clearing Results Impressions: Extremity Ultrasound 09/12/17 17:02 IMPRESSION: DIFFUSE SUBCUTANEOUS EDEMA WITH 1.7 CM COMPLEX FLUID COLLECTION WITHIN THE POPLITEAL FOSSA PRESUMABLY REPRESENTS A BULLARD CYST HOWEVER ABSCESS COULD HAVE THIS APPEARANCE. Assessment & Plan - Diagnosis (1) Abscess Is this a current diagnosis for this admission?: Yes Plan: Status post IND of the left popliteal abscess. Management per primary team (2) Allergic reaction caused by a drug Qualifiers: Encounter type: initial encounter Qualified Code(s): T78.40XA - Allergy, unspecified, initial encounter Is this a current diagnosis for this admission?: Yes Plan: Zosyn was stopped yesterday. As needed Benadryl. (3) Diabetes mellitus type 2 in obese Is this a current diagnosis for this admission?: Yes Plan: blood sugars are currently in the 300s. In part this may be due to the dextrose and vancomycin but they have been consistently elevated. She is on Lantus 10. She required 26 units of regular insulin throughout the day yesterday. I am going to give her half of that and increase her Lantus up to 23 units nightly. I will also add on mealtime insulin to begin tomorrow at 5 units before meals. (4) Hypertension Qualifiers: Hypertension type: unspecified Qualified Code(s): I10 - Essential (primary ) hypertension Is this a current diagnosis for this admission?: Yes Plan: Continue lisinopril 5 mg daily. Blood pressure is under reasonable control. (5) Tinea pedis Qualifiers: Laterality: bilateral Qualified Code(s): B35.3 - Tinea pedis Is this a current diagnosis for this admission?: Yes Plan: Continue topicals. Follow-up as an outpatient. (6) Obesity Qualifiers: Body mass index: BMI 40.0-44.9 - Time Time Spent with patient: 15-24 minutes - Inpatient Certification Medical Necessity: Need Close Monitoring Due to Risk of Patient Decompensation
[2017-09-17] MEDS: HYDROMORPHONE HCL INJ/PF 2 MG/ML AMPULE IV PRN (00:49)
[2017-09-17] MEDS: VANCOMYCIN HCL 1,500 MG in DEXTROSE 5%-WATER 250 ML IV SCH (02:26)
[2017-09-17] MEDS: INSULIN REG, HUMAN 100 UNIT/ML 3 ML VIAL (PYX) SUBCUT SCH ×2 (08:25→10:58)
[2017-09-17] MEDS: NYSTATIN CREAM 15 GM TP SCH (10:58)
[2017-09-17] MEDS: ENOXAPARIN SODIUM INJ 40 MG/0.4 ML DISP.SYRIN SUBCUT SCH (10:58)
[2017-09-17] MEDS: LISINOPRIL 5 MG TABLET PO SCH (11:03)
[2017-09-17] MEDS: DOCUSATE SODIUM 100 MG CAPSULE PO SCH (11:23)
--- NOTE | 2017-09-17 15:50 | PDOC PROGRESS REPORT ---
Subjective Progress Note for:: 09/17/17 Subjective:: No complaints today. The patient has been discharged by the primary service. Physical Exam Vital Signs: Temp Pulse Resp BP Pulse Ox 98.4 F 85 15 147/65 H 96 09/17/17 13:06 09/17/17 13:06 09/17/17 13:06 09/17/17 13:06 09/17/17 13:06 Intake & Output 09/16/17 09/17/17 09/18/17 06:59 06:59 06:59 Intake Total 250 1500 500 Balance 250 1500 500 GENERAL: This is a well-developed well-nourished obese white female resting in bed currently in no acute distress on the phone trying to arrange an appointment with her [employer] executive director. Nondistended. ABDOMEN: Nondistended. EXTREMETIES: No clubbing, cyanosis or edema. 2+ peripheral pulses bilaterally. NEURO: Awake, alert and oriented 3. Cranial nerves II through XII are grossly intact. Results Impressions: Extremity Ultrasound 09/12/17 17:02 IMPRESSION: DIFFUSE SUBCUTANEOUS EDEMA WITH 1.7 CM COMPLEX FLUID COLLECTION WITHIN THE POPLITEAL FOSSA PRESUMABLY REPRESENTS A BULLARD CYST HOWEVER ABSCESS COULD HAVE THIS APPEARANCE. Assessment & Plan - Diagnosis (1) Abscess Is this a current diagnosis for this admission?: Yes Plan: Status post I&D of the left popliteal abscess. Management per primary team (2) Allergic reaction caused by a drug Qualifiers: Encounter type: initial encounter Qualified Code(s): T78.40XA - Allergy, unspecified, initial encounter Is this a current diagnosis for this admission?: Yes Plan: Zosyn was stopped yesterday. As needed Benadryl. (3) Diabetes mellitus type 2 in obese Is this a current diagnosis for this admission?: Yes Plan: blood sugars are currently down in the high 200s. The patient required a total of 30 units of sliding scale insulin over the last 24 hours. This is in addition to her 5 units at mealtime. Therefore, I am increasing her nightly Lantus to 35 units. I have advised her to take her Lantus pen home. I have also written a prescription for her to have an additional Lantus. Should she not make it to her endocrinology appointment. 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 I told her to take her blood sugars 3 times a day with meals and at night before bed. I have instructed her to write them down and to take them with her to her appointment on Friday. (4) Hypertension Qualifiers: Hypertension type: unspecified Qualified Code(s): I10 - Essential (primary ) hypertension Is this a current diagnosis for this admission?: Yes Plan: Continue lisinopril 5 mg daily. Blood pressure is under reasonable control. (5) Tinea pedis Qualifiers: Laterality: bilateral Qualified Code(s): B35.3 - Tinea pedis Is this a current diagnosis for this admission?: Yes Plan: Continue topicals. Follow-up as an outpatient. (6) Obesity Qualifiers: Body mass index: BMI 40.0-44.9 Plan: Weight loss through dietary changes and exercise as tolerated. - Time Time Spent with patient: Time spent coordinating care with pharmacy, nursing staff, discussion with patient on how to use the insulin. Time Spent with patient: 15-24 minutes - Plan Summary Plan Summary: The patient has been discharged by the primary service.
[2017-09-17 16:18] VITALS: BP 147/65
[2017-09-17] MEDS ORDERED: INSULIN GLARGINE,HUM.REC.ANLOG 300 UNIT/3 ML INSULN.PEN SUBCUT SCH (20:00)
--- NOTE | 2017-09-17 23:13 | DISCHARGE SUMMARY E ---
Discharge Summary NAME: DANAY VEGA : 1995 AGE: 22Y ADMITTED: 09/15/2017 DISCHARGED: 09/17/2017 FINAL DIAGNOSES: 1. Abscess of the left lower leg. 2. Diabetes mellitus. PROCEDURES DONE: Incision and drainage done 09/13/[address] Blank. Debridement was done up to the fascial level of the popliteal area. HOSPITAL COURSE: Patient started on IV antibiotics. Wet-to-dry dressings have been placed. She continued to have erythema around the edges of the I and D site. Cultures came back as Group B beta Streptococcus. Has been given a prescription for clindamycin 300 mg p.o. q.i.d. for about 10 days. Medical consultation was obtained for her diabetes mellitus management. Patient then discharged improved on 12/18/2016. Patient to continue wet-to-dry dressings of the left lower leg wound. Patient to go to surgical clinic and [facility] about a week. Patient advised not to do any heavy lifting but encouraged to ambulate and to shower every day and wash the wound with soap and water daily. DICTATING PHYSICIAN: FACUNDO NAVA M.D. [id number] PHY#: [id number] ID: [id number] JOB#: [id number] ACCT: [id number] cc:Eldon URIAS MD, M.D. [facility], >
== END 2017-09-17 16:15 | disposition home or self-care (01) | DRG 580 ==
LOC: ER 15:57 → EH 21:43 → 2N 23:55 → OBSVTOIN 09-15 11:17
PROVIDERS: ATTEND Colon & Rectal Surgery
PROC: 0JDP0ZZ Extraction of Left Lower Leg Subcutaneous Tissue and Fascia, Open Approach (ICD-10-PCS; principal; 2017-09-13 09:00)
DX: L02.416 Cutaneous abscess of left lower limb (principal); Z68.41 Body mass index [BMI] 40.0-44.9, adult; L03.116 Cellulitis of left lower limb; E11.65 Type 2 diabetes mellitus with hyperglycemia; B95.1 Streptococcus, group B, as the cause of diseases classified elsewhere; I10 Essential (primary) hypertension; E66.9 Obesity, unspecified; B35.3 Tinea pedis; Z79.4 Long term (current) use of insulin; Z88.1 Allergy status to other antibiotic agents; Z88.2 Allergy status to sulfonamides; Z83.3 Family history of diabetes mellitus; Z79.84 Long term (current) use of oral hypoglycemic drugs; Z91.19 Patient's noncompliance with other medical treatment and regimen
CPT/HCPCS: 36415; 400; 76882; 80048; 80061; 81025; 82962; 83036; 85025; 87040; 87070; 87075; 87077; 87205; 90686; 96365; 99285; J0131; J0330; J1100; J1170; J1650; J1815; J2250; J2405; J2543; J2704; J2920; J3010; J3370; J3490; J7030; J7060